=== PATIENT | female | born 1995 | race Hispanic/Latino ===

== ENCOUNTER 2017-06-03 21:46 | Emergency (ER) | payer BC ==
[2017-06-03 21:55] VITALS: BP 131/85; PULSE 100; RESP 18; TEMP 98.7; O2SAT 99
--- NOTE | 2017-06-03 22:12 | ED PDOC ---
Lower Extremity Pain/Injury Time Seen by Provider: 06/03/17 21:51 Chief Complaint (Nursing): Lower Extremity Problem/Injury Chief Complaint (Provider): Leg pain History Per: Patient Additional Complaint(s): Patient is a 21 yo female, no PMH, presents to ED for evaluation of having right lower leg pain x 1 day.. No calf tenderness. No trauma to area. Patient feels pain when bending forward and stretchigng. Pt concerned because she is on control and worried about DVT potential Past Medical History Reviewed: Nursing Documentation, Vital Signs Vital Signs: Last Vital Signs Temp 98.7 F 06/03/17 21:53 Pulse 100 H 06/03/17 21:53 Resp 18 06/03/17 21:53 BP 131/85 06/03/17 21:53 Pulse Ox 99 06/03/17 21:53 - Medical History PMH: No Chronic Diseases - Surgical History Surgical History: No Surg Hx - Family History Family History: States: No Known Family Hx - Living Arrangements Living Arrangements: With Family - Social History Current smoker - smoking cessation education provided: No Alcohol: Social Drugs: Denies - Allergies Allergies/Adverse Reactions: Allergies Allergy/AdvReac Type Severity Reaction Status Date / Time pine nut Allergy ANAPHYLAXIS Verified 06/03/17 21:53 Review of Systems ROS Statement: Except As Marked, All Systems Reviewed And Found Negative Musculoskeletal: Positive for: Leg Pain Physical Exam - Reviewed Nursing Documentation Reviewed: Yes Vital Signs Reviewed: Yes - Physical Exam Appears: Positive for: Well, Non-toxic, No Acute Distress Head Exam: Positive for: ATRAUMATIC, NORMAL INSPECTION, NORMOCEPHALIC Skin: Positive for: Normal Color, Warm, DRY Eye Exam: Positive for: EOMI, Normal appearance, PERRL ENT: Positive for: Normal ENT Inspection Neck: Positive for: Normal, Painless ROM Cardiovascular/Chest: Positive for: Regular Rate, Rhythm Respiratory: Positive for: CNT, Normal Breath Sounds Gastrointestinal/Abdominal: Positive for: Normal Exam, Bowel Sounds, Soft Back: Positive for: Normal Inspection Extremity: Positive for: Normal ROM. Negative for: Tenderness, Deformity, Swelling Neurologic/Psych: Positive for: Alert, Oriented - ECG O2 Sat by Pulse Oximetry: 99 Medical Decision Making Medical Decision Making: XR and US: NAD, read by PAKirill Disposition - Clinical Impression Clinical Impression: Leg pain - Patient ED Disposition Is Patient to be Admitted: No - Disposition Disposition: Routine/Home Disposition Time: 00:24 Condition: STABLE Instructions: Leg Pain (ED) Forms: [employer] ([employer])
--- NOTE | 2017-06-03 23:45 | US ---
EXAM: US Duplex Right Lower Extremity Veins CLINICAL HISTORY: 21 years old, female; Pain; Leg, lower; Right; Patient HX: Rt leg pain; Additional info: R/O dvt TECHNIQUE: Real-time ultrasound scan of the veins of the right lower extremity with color Doppler flow, spectral waveform analysis and compression. COMPARISON: No relevant prior studies available. FINDINGS: Deep veins: Unremarkable. No DVT in the visualized common femoral, femoral, proximal deep femoral or popliteal veins. The veins demonstrate normal color flow, are normally compressible, with normal phasic flow and/or augmentation response. Superficial veins: Unremarkable. No thrombus in the visualized great saphenous vein. Soft tissues: No acute findings. No popliteal cyst. IMPRESSION: No right lower extremity deep venous thrombosis, as detailed above.
--- NOTE | 2017-06-04 09:49 | RAD ---
PROCEDURE: Radiographs of the right tibia and fibula. HISTORY: pain COMPARISON: None available. TECHNIQUE: Frontal and lateral views obtained. FINDINGS: BONES: No fracture or destructive lesion. JOINT SPACES: Unremarkable. OTHER FINDINGS: None. IMPRESSION: Unremarkable radiographs of the right tibia and fibula.
== END 2017-06-04 00:09 | disposition home or self-care (01) ==
LOC: H.ER 21:46
DX: M79.661 Pain in right lower leg (principal); Z79.3 Long term (current) use of hormonal contraceptives